=== PATIENT | male | born 1955 | race Caucasian/White ===

== ENCOUNTER 2016-08-04 14:36 | Emergency (ER) | payer MEDICARE, BC ==
[~2016-08-04] VITALS: Ht 177.8 cm; Wt 124.5 kg
[~2016-08-04 14:36] MED LIST: COGENTIN 1MG1 MG/TAB PO; CRANBERRY450 MG PO; DULCOLAX STOOL100 MG PO; EZFE 200200 MG PO; IBU600 MG PO; NORCO 325 MG-51 TAB PO; ONE-A-DAY MEN'S1 TAB PO; PERCOCET 325 MG1 TA2 PO; REQUIP XL4 MG PO; SINEMET-25/251 UDTAB PO; ZOLOFT 50MG50 MG PO
[2016-08-04 14:38] VITALS: TEMP 98.6
[2016-08-04] MEDS ORDERED: PROBIOTIC ACID1 EAC3 PO (15:26)
[2016-08-04] MEDS ORDERED: REQUIP XL6 MG PO (15:26)
[2016-08-04] MEDS ORDERED: MULTI VITAMINS1 TAB PO (15:26)
[2016-08-04] MEDS ORDERED: ZOLOFT 50MG50 MG PO (15:27)
[2016-08-04] MEDS ORDERED: FLOMAX 0.40.4 MG/CAP PO (15:28)
[2016-08-04] MEDS ORDERED: SINEMET 25/101 UDTAB PO (15:29)
[2016-08-04] MEDS ORDERED: MIRALAX PA17 GM/Dose PO (15:31)
[2016-08-04 17:06] LABS: BASO % 0.4 % (0.0-2.0); EOS # 0.1 (0.0-0.7); GRAN # 4.4 (1.4-6.5); GRAN % 61.9 % (42.2-75.2); HEMATOCRIT 38.2 % (42.0-52.0); HEMOGLOBIN 12.6 g/dl (13.5-18.0); LYMPH # 1.9 (1.2-3.4); LYMPH % 27.2 % (20.0-51.0); MEAN CELL VOLUME 93 fl (80.0-100.0); MEAN CORPUSCULAR HEMOGLOBIN 31 pg (27.0-31.0); MEAN CORPUSCULAR HGB CONC 33 g/dl (33.0-37.0); MEAN PLATELET VOLUME 9.1 fl (7.4-10.4); MONO # 0.6 (0.1-0.6); MONO % 8.2 % (1.7-9.3); PLATELET COUNT 194 K/mm3 (130-400); RED BLOOD COUNT 4.13 M/mm3 (4.20-5.60); WHITE BLOOD COUNT 7.1 K/mm3 (4.8-10.8)
[2016-08-04 17:16] LABS: ALBUMIN 4.1 gm/dL (3.5-5.0); BILIRUBIN,TOTAL 0.7 mg/dL (0.0-1.0); C-REACTIVE PROTEIN 0.9 mg/dL (0.0-0.9); CALCIUM 9.1 mg/dL (8.4-10.2); CREATININE, serum 0.81 mg/dL (0.66-1.25); POTASSIUM 4.2 mmol/L (3.4-5.0); TOTAL PROTEIN 7.1 gm/dL (6.4-8.2)
[2016-08-04 17:47] LABS: PH 7 (5-8); SQUAMOUS EPITHELIAL None Seen /hpf; URINE APPEARANCE Hazy; URINE BACTERIA Rare /hpf; URINE BILIRUBIN Negative (NEGATIVE); URINE BLOOD 1+ (NEGATIVE); URINE COLOR Yellow; URINE GLUCOSE Negative (NEGATIVE); URINE KETONE Negative (NEGATIVE); URINE UROBILINOGEN Negative (NEGATIVE)
[2016-08-04 17:48] LABS: URINE WBC 20-50 /hpf
[2016-08-04 18:41] VITALS: BP 147/80; PULSE 76
== END 2016-08-04 18:43 | disposition home or self-care (01) ==
LOC: COL.ER 14:36
PROVIDERS: Family Medicine
DX: G20 Parkinson's disease (principal); R82.71 Bacteriuria

== ENCOUNTER 2016-08-13 12:45 | Inpatient (IN) | payer MEDICARE, BC ==
[~2016-08-13] VITALS: Ht 177.8 cm; Wt 122.2 kg
[~2016-08-13 12:45] MED LIST changes: +FLOMAX 0.40.4 MG/CAP PO; +MIRALAX PA17 GM/Dose PO; +MULTI VITAMINS1 TAB PO; +PROBIOTIC ACID1 EAC3 PO; +REQUIP XL6 MG PO; +SINEMET 25/101 UDTAB PO
[2016-08-13 13:03] VITALS: BP 117/73; PULSE 88; TEMP 98.4
[2016-08-13] MEDS ORDERED: VTAMINC250TA PO (13:42)
[2016-08-13] MEDS ORDERED: FLONASEALLERGY NS (13:44)
[2016-08-13] MEDS ORDERED: SYMMETREL100 M1 PO (13:47)
[2016-08-13] MEDS ORDERED: COGENTIN 1MG1 MG/TAB PO (13:48)
[2016-08-13] MEDS ORDERED: CIPRO 500MG TA500 MG PO (13:49)
[2016-08-13] MEDS ORDERED: FERROUSAL325 MG PO (13:51)
[2016-08-13 16:56] VITALS: BP 144/78; PULSE 86; TEMP 97.5
[2016-08-13 17:01] VITALS: BP 144/78; PULSE 86; TEMP 97.5
[2016-08-13 17:05] VITALS: BP 144/78; PULSE 86; TEMP 97.5
[2016-08-13 17:31] VITALS: BP 144/78; PULSE 86; TEMP 97.5
[2016-08-14 06:13] VITALS: BP 140/72; PULSE 74; TEMP 98.4
[2016-08-14 17:19] VITALS: BP 116/61; PULSE 85; TEMP 98.7
[2016-08-15 05:05] VITALS: BP 145/73; PULSE 70; TEMP 98.6
[2016-08-15 16:14] VITALS: BP 123/63; PULSE 79; TEMP 97.3
[2016-08-16 04:23] VITALS: BP 120/71; PULSE 65; TEMP 97.6
[2016-08-16 16:11] VITALS: BP 107/65; PULSE 87; TEMP 97.9
[2016-08-17 04:25] VITALS: BP 112/59; PULSE 66; TEMP 98.2
[2016-08-17 16:36] VITALS: BP 114/62; PULSE 70; TEMP 98.7
[2016-08-18 05:40] VITALS: BP 108/59; PULSE 62; TEMP 98.1
[2016-08-18 17:58] VITALS: BP 110/51; PULSE 74; TEMP 98.8
[2016-08-19 04:59] VITALS: BP 111/63; PULSE 68; TEMP 98.5
[2016-08-19 18:30] VITALS: BP 142/73; PULSE 78; TEMP 98.8
[2016-08-20 07:21] VITALS: BP 108/59; PULSE 65; TEMP 98.2
[2016-08-20 16:45] VITALS: BP 144/77; PULSE 79; TEMP 99.1
[2016-08-21 05:48] VITALS: BP 123/78; PULSE 70; TEMP 98.2
[2016-08-21 19:00] VITALS: BP 96/45; PULSE 78; TEMP 98.8
[2016-08-22 05:50] VITALS: BP 130/82; PULSE 63; TEMP 98.9
[2016-08-22 17:28] LABS: PH 5 (5-8); SQUAMOUS EPITHELIAL None Seen /hpf; URINE APPEARANCE Clear; URINE BACTERIA Rare /hpf; URINE BILIRUBIN Negative (NEGATIVE); URINE BLOOD Negative (NEGATIVE); URINE COLOR Yellow; URINE GLUCOSE Negative (NEGATIVE); URINE KETONE Negative (NEGATIVE); URINE RBC 0-2 /hpf; URINE UROBILINOGEN Negative (NEGATIVE)
[2016-08-22 18:00] VITALS: BP 115/59; PULSE 73; TEMP 98.8
[2016-08-23 04:45] VITALS: BP 125/69; PULSE 68; TEMP 97.6
[2016-08-23 17:11] VITALS: BP 111/75; PULSE 72; TEMP 97.9
[2016-08-24 05:41] VITALS: BP 122/68; PULSE 66; TEMP 97.2
[2016-08-24 17:02] VITALS: BP 136/75; PULSE 81; TEMP 98
[2016-08-25 04:38] VITALS: BP 115/69; PULSE 68; TEMP 98.2
[2016-08-25 15:26] VITALS: BP 111/65; PULSE 78; TEMP 97.6
[2016-08-26 06:15] VITALS: BP 128/75; PULSE 79; TEMP 98.4
[2016-08-26] MEDS ORDERED: PROBIOTIC ACID1 EAC3 PO (09:08)
[2016-08-26] MEDS ORDERED: TYLENOL 325MG325 MG PO (09:08)
[2016-08-26] MEDS ORDERED: OMNICEF 300MG300 MG PO (09:09)
[2016-08-26] MEDS ORDERED: PERCOCET 325 MG1 TA2 PO (09:10)
== END 2016-08-26 16:00 | disposition home health service (06) | DRG 57 ==
PROVIDERS: Internal Medicine
DX: G20 Parkinson's disease (principal); N39.0 Urinary tract infection, site not specified; G89.29 Other chronic pain; Z87.891 Personal history of nicotine dependence; B96.20 Unspecified Escherichia coli [E. coli] as the cause of diseases classified elsewhere; Z91.81 History of falling
CPT/HCPCS: 99222-AI; 99232-AI; 99233-AI; 99239; A9284; J0696; J1650

== ENCOUNTER 2016-09-01 12:53 | Outpatient (RCR) | payer MEDICARE, BC ==
[~2016-09-01] VITALS: Ht 177.8 cm; Wt 125.0 kg
[~2016-09-01 12:53] MED LIST changes: +CIPRO 500MG TA500 MG PO; +FERROUSAL325 MG PO; +FLONASEALLERGY NS; +OMNICEF 300MG300 MG PO; +SYMMETREL100 M1 PO; +TYLENOL 325MG325 MG PO; +VTAMINC250TA PO
[2016-09-01 13:25] VITALS: BP 132/89; PULSE 76; TEMP 97.7
== END 2016-09-01 15:28 | disposition home or self-care (01) ==
LOC: EUO 12:53
DX: Z45.2 Encounter for adjustment and management of vascular access device (principal); I50.1 Left ventricular failure, unspecified; J90 Pleural effusion, not elsewhere classified
CPT/HCPCS: C1751

== ENCOUNTER → 2016-09-03 | Outpatient (REF) | LOC: ZAIV 09-02 06:00 | DX: Z02.89 Encounter for other administrative examinations (principal) ==

== ENCOUNTER → 2016-09-04 | Outpatient (REF) ==
[2016-09-04 15:36] LABS: BASO # 0.1 (0.0-0.2); BASO % 0.8 % (0.0-2.0); EOS # 0.3 (0.0-0.7); EOS % 4.6 % (0-4.0); GRAN # 3.7 (1.4-6.5); GRAN % 56.1 % (42.2-75.2); HEMATOCRIT 40.6 % (42.0-52.0); HEMOGLOBIN 13.7 g/dl (13.5-18.0); LYMPH % 30.1 % (20.0-51.0); MEAN CELL VOLUME 92 fl (80.0-100.0); MEAN CORPUSCULAR HEMOGLOBIN 31 pg (27.0-31.0); MEAN CORPUSCULAR HGB CONC 34 g/dl (33.0-37.0); MEAN PLATELET VOLUME 9.8 fl (7.4-10.4); MONO # 0.5 (0.1-0.6); MONO % 8.2 % (1.7-9.3); PLATELET COUNT 190 K/mm3 (130-400); RED BLOOD COUNT 4.42 M/mm3 (4.20-5.60); REDCELL DISTRIBUTION WIDTH-CV 12.8 % (11.5-14.5); WHITE BLOOD COUNT 6.6 K/mm3 (4.8-10.8)
[2016-09-04 16:00] LABS: ADJUSTED CALCIUM 9.2 mg/dL (8.4-10.2); ALBUMIN 3.8 gm/dL (3.5-5.0); BILIRUBIN,TOTAL 0.8 mg/dL (0.0-1.0); CREATININE, serum 0.7 mg/dL (0.66-1.25); POTASSIUM 4.9 mmol/L (3.4-5.0); TOTAL PROTEIN 6.5 gm/dL (6.4-8.2)
== END ==
LOC: ZCOL.LAB 15:30
PROVIDERS: Internal Medicine
DX: Z01.89 Encounter for other specified special examinations (principal)

== ENCOUNTER → 2016-11-24 | Outpatient (CLI) | payer MEDICARE, BC | LOC: MHCPAIN 11:53 | DX: G89.29 Other chronic pain (principal); M47.27 Other spondylosis with radiculopathy, lumbosacral region; M53.3 Sacrococcygeal disorders, not elsewhere classified; M96.1 Postlaminectomy syndrome, not elsewhere classified; Z87.891 Personal history of nicotine dependence | CPT/HCPCS: G0463 ==